=== PATIENT | male | born 1980 | race Caucasian/White ===

== ENCOUNTER 2021-09-14 15:25 | Emergency (ER) | payer OTHER ==
[2021-09-14 15:33] VITALS: RESP 18; TEMP 97.9
[2021-09-14] MEDS ORDERED: SODIUM CHLORIDE 0.9% 1,000 ML IV STA (15:48)
[2021-09-14 16:01] LABS: Basophils # (A) 0.1 k/uL (0-0.2); Basophils % (A) 1 %; Eosinophils # (A) 0.2 k/uL (0-0.7); Eosinophils % (A) 1 %; HCT 49.5 % (39.0-53.0); Lymphocytes # (A) 4.5 k/uL (1.0-4.8); Lymphocytes % (A) 26 %; MCH 26.7 pg (25.0-35.0); MCHC 32.3 g/dL (31.0-37.0); MCV 82.5 fL (80.0-100.0); Mean Platelet Volume 8.5; Monocytes # (A) 0.6 k/uL (0-1.0); Monocytes % (A) 4 %; Neutrophils # (A) 11.9 k/uL (1.3-7.7); Neutrophils % (A) 68 %; Platelet Count 466 k/uL (150-450); RDW 12.9 % (11.5-15.5); WBC 17.4 k/uL (3.8-10.6)
[2021-09-14 16:12] LABS: ALT 37 U/L (4-49); AST 101 U/L (17-59); African American GFR (CKD) >90 (>60 ml/min/1.73 sqM); Albumin 4.3 g/dL (3.5-5.0); Alcohol <10 mg/dL; Alkaline Phosphatase 79 U/L (38-126); Anion Gap 14 mmol/L; Blood Urea Nitrogen 8 mg/dL (9-20); Calcium 9.8 mg/dL (8.4-10.2); Carbon Dioxide 17 mmol/L (22-30); Chloride 105 mmol/L (98-107); Glucose 114 mg/dL (74-99); Magnesium 2.2 mg/dL (1.6-2.3); Non-African American GFR(CKD) >90 (>60 ml/min/1.73 sqM); Potassium 4.3 mmol/L (3.5-5.1); Sodium 136 mmol/L (137-145); Total Bilirubin 0.5 mg/dL (0.2-1.3); Total Protein 7.3 g/dL (6.3-8.2)
--- NOTE | 2021-09-14 16:36 | ED ---
General Adult HPI - General Source: patient, EMS, RN notes reviewed Mode of arrival: EMS Limitations: no limitations <Isaac Au - Last Filed: 09/14/21 16:44> <Elma Mcdonnell - Last Filed: 09/14/21 18:44> - General Chief complaint: Seizure Stated complaint: seizure Time Seen by Provider: 09/14/21 15:44 - History of Present Illness Initial comments: 40-year-old male presents to the emergency room for a chief complaint of seizure. Patient had a first-time seizure just prior to arrival. This was witnessed by his mother who reports his whole body was trembling, his eyes rolled back, he was frothing at the mouth. Her dog woke her up from a nap and that she found him. She states maybe lasted a few minutes. Patient did bite his tongue, no loss of bladder control. Patient states he saw something charlie ating in front of his face before it started and does not recall the rest but it was witnessed by family member. 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 Patient has no other complaints at this time including shortness of breath, chest pain, abdominal pain, nausea or vomiting, headache, or visual changes. (Isaac Au) - Related Data Home Medications Medication Instructions Recorded Confirmed ARIPiprazole [Abilify] 5 mg PO DAILY 09/14/21 09/14/21 Cholecalciferol [Vitamin D3 (25 50 mcg PO DAILY 09/14/21 09/14/21 Mcg = 1000 Iu)] Hydrocortisone [Cortef] 10 mg PO HS 09/14/21 09/14/21 Hydrocortisone [Cortef] 20 mg PO DAILY 09/14/21 09/14/21 Levothyroxine Sodium [Synthroid] 150 mcg PO DAILY 09/14/21 09/14/21 Sertraline [Zoloft] 100 mg PO HS 09/14/21 09/14/21 Allergies Allergy/AdvReac Type Severity Reaction Status Date / Time amoxicillin Allergy Unknown Verified 09/14/21 17:51 clavulanic acid Allergy Unknown Verified 09/14/21 17:51 [From Augmentin] Review of Systems ROS Other: All systems not noted in ROS Statement are negative. <Isaac Au - Last Filed: 09/14/21 16:44> ROS Other: All systems not noted in ROS Statement are negative. <Elma Mcdonnell - Last Filed: 09/14/21 18:44> ROS Statement: Those systems with pertinent positive or pertinent negative responses have been documented in the HPI. 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 Absent: scleral icterus, co njunctival injection, periorbital swelling ENT exam: Present: normal exam, mucous membranes moist. Absent: normal oropharynx (superficial abrasions to tongue) Neck exam: Present: normal inspection, full ROM. Absent: tenderness, meningismus, lymphadenopathy Respiratory exam: Present: normal lung sounds bilaterally. Absent: respiratory distress, wheezes Cardiovascular Exam: Present: regular rate, normal rhythm, normal heart sounds GI/Abdominal exam: Present: soft, normal bowel sounds. Absent: distended, tenderness Neurological exam: Present: alert, oriented X3 <Isaac Au - Last Filed: 09/14/21 16:44> Course Vital Signs 09/14/21 15:27 Temperature 97.9 F Pulse Rate 82 Respiratory 18 Rate Blood Pressure 109/69 O2 Sat by Pulse 92 L Oximetry Medical Decision Making - Lab Data Result diagrams: 09/14/21 15:53 09/14/21 15:53 <Isaac Au - Last Filed: 09/14/21 16:44> - Lab Data Result diagrams: 09/14/21 15:53 09/14/21 15:53 <Elma Mcdonnell - Last Filed: 09/14/21 18:44> - Medical Decision Making Spoke with Dr. Jones about IV hydrocortison, no real indication to give this just based on seizure. Recommends to continue work up however to evaluate for etiology Care signed out to EILEEN Wills 1700. (Isaac Au) Laboratory studies reviewed. Leukocytosis consistent with chronic steroid use. Along with thrombocytopenia. Comment without significant abnormalities with the exception of low bicarb level. Random cortisol level stable at 4 ug/dL. No indication for pulse dose steroids. 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 Advised until cleared by neurology. Case discussed with Dr. Aguiar (Elma Mcdonnell) - Lab Data Lab Results 09/14/21 09/14/21 09/14/21 Range/Units 15:53 15:53 16:05 WBC 17.4 H (3.8-10.6) k/uL RBC 6.00 H (4.30-5.90) m/uL Hgb 16.0 (13.0-17.5) gm/dL Hct 49.5 (39.0-53.0) % MCV 82.5 (80.0-100.0) fL MCH 26.7 (25.0-35.0) pg MCHC 32.3 (31.0-37.0) g/dL RDW 12.9 (11.5-15.5) % Plt Count 466 H (150-450) k/uL MPV 8.5 Neutrophils % 68 % Lymphocytes % 26 % Monocytes % 4 % Eosinophils % 1 % Basophils % 1 % Neutrophils # 11.9 H (1.3-7.7) k/uL Lymphocytes # 4.5 (1.0-4.8) k/uL Monocytes # 0.6 (0-1.0) k/uL Eosinophils # 0.2 (0-0.7) k/uL Basophils # 0.1 (0-0.2) k/uL Sodium 136 L (137-145) mmol/L Potassium 4.3 (3.5-5.1) mmol/L Chloride 105 (98-107) mmol/L Carbon Dioxide 17 L (22-30) mmol/L Anion Gap 14 mmol/L BUN 8 L (9-20) mg/dL Creatinine 0.94 (0.66-1.25) mg/dL Est GFR (CKD-EPI)AfAm >90 (>60 ml/min/1.73 sqM) Est GFR (CKD-EPI)NonAf >90 (>60 ml/min/1.73 sqM) Glucose 114 H (74-99) mg/dL Calcium 9.8 (8.4-10.2) mg/dL Magnesium 2.2 (1.6-2.3) mg/dL Total Bilirubin 0.5 (0.2-1.3) mg/dL AST 101 H (17-59) U/L ALT 37 (4-49) U/L Alkaline Phosphatase 79 (38-126) U/L Total Protein 7.3 (6.3-8.2) g/dL Albumin 4.3 (3.5-5.0) g/dL Cortisol 4 ug/dL Serum Alcohol <10 mg/dL 09/14/21 Range/Units 16:05 WBC (3.8-10.6) k/uL RBC (4.30-5.90) m/uL Hgb (13.0-17.5) gm/dL Hct (39.0-53.0) % MCV (80.0-100.0) fL MCH (25.0-35.0) pg MCHC (31.0-37.0) g/dL RDW (11.5-15.5) % Plt Count (150-450) k/uL MPV Neutrophils % % Lymphocytes % % Monocytes % % Eosinophils % % Basophils % % Neutrophils # (1.3-7.7) k/uL Lymphocytes # (1.0-4.8) k/uL Monocytes # (0-1.0) k/uL Eosinophils # (0-0.7) k/uL Basophils # (0-0.2) k/uL Sodium (137-145) mmol/L Potassium (3.5-5.1) mmol/L Chloride (98-107) mmol/L Carbon Dioxide (22-30) mmol/L Anion Gap mmol/L BUN (9-20) mg/dL Creatinine (0.66-1.25) mg/dL Est GFR (CKD-EPI)AfAm (>60 ml/min/1.73 sqM) Est GFR (CKD-EPI)NonAf (>60 ml/min/1.73 sqM) Glucose (74-99) mg/dL Calcium 9.9 (8.4-10.2) mg/dL Magnesium (1.6-2.3) mg/dL Total Bilirubin (0.2-1.3) mg/dL AST (17-59) U/L ALT (4-49) U/L Alkaline Phosphatase (38-126) U/L Total Protein (6.3-8.2) g/dL Albumin (3.5-5.0) g/dL Cortisol ug/dL Serum Alcohol mg/dL Disposition <Isaac Au - Last Filed: 09/14/21 16:44> Is patient prescribed a controlled substance at d/c from ED?: No Time of Disposition: 18:43 <Elma Mcdonnell - Last Filed: 09/14/21 18:44> Clinical Impression: New onset seizure Disposition: HOME SELF-CARE Condition: Stable Instructions (If sedation given, give patient instructions): Seizure/Epilepsy Discharge Instructions & Follow-Up Additional Instructions: Please continue to take your already prescribed medications for schizophrenia and Emmanuel's disease as prescribed. No new medications were prescribed today. Please follow-up with your primary care provider along with your endocrinolo gist. Referral information for neurology provided however please contact the [facility]. No driving until cleared by neurology. Please continue to monitor for any recurrent neurological symptoms including weakness or confusion.Please return to the Emergency Department if symptoms worsen or any other concerns. Referrals: [facility] [Primary Care Provider] - 1-2 days Oziel Sunshine DO [STAFF PHYSICIAN] - 1-2 days
--- NOTE | 2021-09-14 16:55 | XR ---
EXAMINATION TYPE: XR chest 2V DATE OF EXAM: 09/14/2021 COMPARISON: NONE HISTORY: Cough TECHNIQUE: 2 views FINDINGS: Heart and mediastinum are normal. Lungs are clear. Diaphragm is normal. Bony thorax appears normal IMPRESSION: Normal chest
--- NOTE | 2021-09-14 17:15 | CT ---
EXAMINATION TYPE: CT brain wo con DATE OF EXAM: 09/14/2021 COMPARISON: None HISTORY: seizure activity CT DLP: 1287.4 mGycm Automated exposure control for dose reduction was used. Ventricles have normal size. There is no mass effect or midline shift. No sign of intracranial hemorr selvin. Calvarium is intact. There is normal aeration of the mastoid sinuses. IMPRESSION: Negative unenhanced head CT scan.
[2021-09-14 19:25] VITALS: BP 91/58; PULSE 76
== END 2021-09-14 19:26 | disposition home or self-care (01) ==
LOC: EC 15:25
DX: R56.9 Unspecified convulsions (principal); Z88.0 Allergy status to penicillin; Z88.1 Allergy status to other antibiotic agents
CPT/HCPCS: 70450; 71046; 80053; 80320; 82024; 82310; 82533; 83735; 84244; 85025; 93005; 96360; 96361; 99285